=== PATIENT | female | born 1995 ===

== ENCOUNTER → 2017-05-21 | Outpatient (CLI) | payer OTHER ==
--- NOTE | 2017-05-21 15:39 | MAMMOGRAPHY REPORT ---
ULTRASOUND OF LEFT BREAST: 05/21/2017 CLINICAL HISTORY: The patient reports itching of the left nipple for approximately 1 month, which is now resolved. She reports she has some darkened skin in the region of the previous itching. She den ies any palpable lumps, nipple discharge, or other complaints. COMPARISON: No prior exams were available for comparison. TECHNIQUE: Real-time targeted ultrasound of the left breast was performed. FINDINGS: Real-time, high-resolution targeted ultrasound was performed of the area of prior itching a nd associated skin changes pointed out by the patient in the left 7:00 subareolar breast. In the lef t 7:00 subareolar breast, there is an oval circumscribed slightly hypoechoic solid mass which measure s 1.5 x 0.7 x 1.2 cm. The mass is indeterminate and ultrasound-guided core needle biopsy is recommen ded for further evaluation. The remainder of this region demonstrates no suspicious masses or other suspicious abnormalities. IMPRESSION: ACR BI-RADS CATEGORY 4: SUSPICIOUS - FOLLOW-UP RECOMMENDED Hypoechoic circumscribed 1.5 cm mass in the left 7:00 subareolar breast, at the site of left areola i tching and skin changes pointed out by the patient. The mass is indeterminate and ultrasound-guided c ore needle biopsy is recommended for further evaluation. This likely represents a fibroadenoma. Als o recommend clinical follow-up for left areola itching and skin changes; she reports the itching has now resolved. A phone call was made to the physician's office to confirm faxed results were received. The patient was verbally notified of the results. She tentatively scheduled the biopsy [facility]. Fidelia Espinosa M.D. ah/:05/21/2017 08:26:26 Bufferer: Malena LÓPEZ)([place]), [facility] letter sent: Abnormal 4/5 BI-RADS Code: ACR BI-RADS Category 4: Suspicious
== END | disposition home or self-care (01) ==
LOC: C.MAMM 07:56
PROVIDERS: ATTEND Internal Medicine
DX: N63.20 Unspecified lump in the left breast, unspecified quadrant (principal)